=== PATIENT | female | born 1965 | race Asian ===

== ENCOUNTER 2020-09-18 11:46 | Emergency (ER) | payer SELFPAY ==
[~2020-09-18] VITALS: Ht 162.6 cm; Wt 61.1 kg
[2020-09-18 11:51] VITALS: BP 115/59
[2020-09-18] MEDS ORDERED: BUPIVACAINE 0.25% ONE (12:16)
[2020-09-18] MEDS ORDERED: KETOROLAC 30 MG/1 ML ONE (12:16)
[2020-09-18] MEDS ORDERED: LIDOCAINE 1%-EPI 1:100K, 20ML ONE (12:16)
[2020-09-18] MEDS ORDERED: BUPIVACAINE/PF 0.25% INFIL ONE (12:30)
[2020-09-18] MEDS ORDERED: LIDOCAINE 1%-EPI 1:100K, 20ML SQ ONE (12:30)
[2020-09-18] MEDS ORDERED: KETOROLAC 30 MG/1 ML IM ONE (12:30)
== END 2020-09-18 13:08 | disposition home or self-care (01) ==
LOC: ED 12:30
DX: K04.7 Periapical abscess without sinus (principal)
CPT/HCPCS: 41800; 96372; 99284; J1885